=== PATIENT | male | born 1965 | race African-American/Black ===

== ENCOUNTER 2018-09-17 21:28 | Emergency (ER) | payer SELFPAY ==
[2018-09-17] MEDS ORDERED: Sodium Chloride 0.9% 1,000 ML IV ONE (21:46)
[2018-09-17 21:47] VITALS: BP 130/83
[2018-09-17] MEDS ORDERED: Atropine/Diphenoxylate 0.025-2.5 MG Tab PO ONE (21:47)
[2018-09-17] MEDS ORDERED: Ondansetron 4 MG/2 ML SDV IVPUSH ONE (21:47)
--- NOTE | 2018-09-17 22:10 | EDM.PDOC ---
ED HPI GENERAL MEDICAL PROBLEM - General Chief Complaint: Gastrointestinal Problem Stated Complaint: vomiting Time Seen by Provider: 09/17/18 21:46 Source of Information: Reports: Patient History Limitations: Reports: No Limitations - History of Present Illness INITIAL COMMENTS - FREE TEXT/NARRATIVE: 52 y/o male presents to ER with cc diarrhea that started yesterday evening. He reports today he started vomiting x 3. He denies fever, chills or body aches. He states he ate yesterday at a [employer] in town. He has not been around any other sick contact. Onset Date: 09/16/18 Onset Time: 17:00 Duration: Intermittent Location: Reports: Abdomen Quality: Reports: Dull Severity: Mild Improves with: Reports: None Worsens with: Reports: None Associated Symptoms: Reports: Nausea/Vomiting, Other (diarrhea). Denies: Fever/ Chills Upper Abdomen Pain Score (Numeric/FACES): 8 - Related Data Allergies Allergy/AdvReac Type Severity Reaction Status Date / Time No Known Allergies Allergy Verified 05/23/18 23:38 Home Meds: Home Meds Diphenoxylate HCl/Atropine [Lomotil] 1 tab PO Q6H PRN 3 Days #6 tablet 09/17/18 [Rx] Ondansetron [Zofran ODT] 4 mg PO Q6H PRN 4 Days #12 tab.dis 09/17/18 [Rx] Past Medical History - Past Health History Medical/Surgical History: Denies Medical/Surgical History - Past Surgical History GI Surgical History: Reports: Appendectomy Social & Family History - Caffeine Use Caffeine Use: Reports: None ED ROS GENERAL - Review of Systems Review Of Systems: See Below Constitutional: Denies: Fever, Chills HEENT: Reports: Throat Pain Respiratory: Reports: No Symptoms Cardiovascular: Reports: No Symptoms Endocrine: Reports: No Symptoms GI/Abdominal: Reports: Abdominal Pain, Diarrhea, Vomiting (epigastric tenderness ) Musculoskeletal: Reports: No Symptoms Skin: Reports: No Symptoms Neurological: Reports: No Symptoms Psychiatric: Reports: No Symptoms Hematologic/Lymphatic: Reports: No Symptoms Immunologic: Reports: No Symptoms ED EXAM, GI/ABD - Physical Exam Exam: See Below Exam Limited By: No Limitations General Appearance: Alert, WD/WN, No Apparent Distress Ears: Normal External Exam, Normal Canal, Hearing Grossly Normal, Normal TMs Nose: Normal Inspection, Normal Mucosa, No Blood Throat/Mouth: Normal Inspection, Normal Lips, Normal Teeth, Normal Gums, Normal Oropharynx, Normal Voice, No Airway Compromise Head: Atraumatic, Normocephalic Neck: Normal Inspection, Supple, Non-Tender, Full Range of Motion Respiratory/Chest: No Respiratory Distress, Lungs Clear, Normal Breath Sounds, No Accessory Muscle Use, Chest Non-Tender Cardiovascular: Normal Peripheral Pulses, Regular Rate, Rhythm, No Edema, No Gallop, No JVD, No Murmur, No Rub GI/Abdominal Exam: Normal Bowel Sounds, Soft, Non-Tender, No Organomegaly, No Distention, No Abnormal Bruit, No Mass, Pelvis Stable (Male) Exam: No Hernia, Normal Inspection, Normal Prostate Back Exam: Normal Inspection, Full Range of Motion Extremities: Normal Inspection, Normal Range of Motion, Non-Tender, No Pedal Edema, Normal Capillary Refill Neurological: Alert, Oriented, Normal Cognition, Normal Gait, Normal Reflexes, No Motor/Sensory Deficits Psychiatric: Normal Affect, Normal Mood Skin Exam: Warm, Dry, Intact, Normal Color, No Rash Lymphatic: No Adenopathy Course - Vital Signs Last Recorded V/S: Last Vital Signs Temp 98.1 F 09/17/18 21:45 Pulse 72 09/17/18 21:45 Resp 20 09/17/18 21:45 BP 130/83 09/17/18 21:45 Pulse Ox 95 09/17/18 21:45 - Orders/Labs/Meds Labs: Laboratory Tests 09/17/18 09/17/18 Range/Units 22:03 22:03 WBC 5.21 (4.23-9.07) K/mm3 RBC 5.13 (4.63-6.08) M/mm3 Hgb 15.2 (13.7-17.5) gm/L Hct 45.8 (40.1-51.0) % MCV 89.3 (79.0-92.2) fl MCH 29.6 (25.7-32.2) pg MCHC 33.2 (32.2-35.5) g/dl RDW Std Deviation 46.7 H (35.1-43.9) fL Plt Count 158 L (163-337) K/mm3 MPV 10.7 (9.4-12.3) fl Neut % (Auto) 60.7 (34.0-67.9) % Lymph % (Auto) 21.3 L (21.8-53.1) % Crane % (Auto) 10.7 (5.3-12.2) % Eos % (Auto) 7.1 H (0.8-7.0) Baso % (Auto) 0.0 L (0.1-1.2) % Neut # (Auto) 3.16 (1.78-5.38) K/mm3 Lymph # (Auto) 1.11 L (1.32-3.57) K/mm3 Crane # (Auto) 0.56 (0.30-0.82) K/mm3 Eos # (Auto) 0.37 (0.04-0.54) K/mm3 Baso # (Auto) 0.00 L (0.01-0.08) K/mm3 Sodium 142 (136-145) mEq/L Potassium 3.4 L (3.5-5.1) mEq/L Chloride 104 (98-107) mEq/L Carbon Dioxide 27 (21-32) mEq/L Anion Gap 14.4 (5-15) BUN 21 H (7-18) mg/dL Creatinine 1.0 (0.7-1.3) mg/dL Est Cr Clr Drug Dosing 108.50 mL/min Estimated GFR (MDRD) > 60 (>60) mL/min BUN/Creatinine Ratio 21.0 H (14-18) Glucose 99 (74-106) mg/dL Calcium 8.2 L (8.5-10.1) mg/dL Total Bilirubin 1.2 H (0.2-1.0) mg/dL AST 27 (15-37) U/L ALT 37 (16-63) U/L Alkaline Phosphatase 65 (46-116) U/L Total Protein 7.8 (6.4-8.2) g/dl Albumin 3.7 (3.4-5.0) g/dl Globulin 4.1 gm/dL Albumin/Globulin Ratio 0.9 L (1-2) Meds: Medications Discontinued Medications Generic Name Dose Route Start Last Admin Trade Name Freq PRN Reason Stop Dose Admin Diphenoxylate HCl/Atropine 1 tab 09/17/18 21:47 09/17/18 22:03 Lomotil 0.025-2.5 Mg PO 09/17/18 21:48 1 tab ONETIME ONE Administration Sodium Chloride 1,000 mls @ 999 mls/hr 09/17/18 21:46 09/17/18 22:03 Normal Saline IV 09/17/18 22:46 999 mls/hr ONETIME ONE Administration Ondansetron HCl 4 mg 09/17/18 21:47 09/17/18 22:03 Zofran IVPUSH 09/17/18 21:48 4 mg ONETIME ONE Administration - Re-Assessments/Exams Free Text/Narrative Re-Assessment/Exam: 09/17/18 22:58 His WBC 5.21 H & H 15.2/45.8 PLT 158. Na+ 142 K+ 3.4 Chloride 104 Bun 21 Creatine 1.0. I will discharge home with Zofran and Lomotil. I instructed the patient on bland diet and to advance as tolerated. He received IVF, Zofran and Lomotil and his condition improved. Instructed to follow up with his PCP. Instructed him to return to the ER for any new or acute worsening symptoms. Departure - Departure Time of Disposition: 23:01 Disposition: Home, Self-Care 01 Condition: Good Clinical Impression: Gastroenteritis - Discharge Information *PRESCRIPTION DRUG MONITORING PROGRAM REVIEWED*: Not Applicable *COPY OF PRESCRIPTION DRUG MONITORING REPORT IN PATIENT MACKEN[place]IE: Not Applicable Prescriptions: Diphenoxylate HCl/Atropine [Lomotil] 1 tab PO Q6H PRN 3 Days #6 tablet PRN Reason: diarhea Ondansetron [Zofran ODT] 4 mg PO Q6H PRN 4 Days #12 tab.dis PRN Reason: Nausea Instructions: Viral Gastroenteritis, Adult, Food Choices to Help Relieve Diarrhea, Adult, Nausea and Vomiting, Adult, [id number] Referrals: PCP,None [Primary Care Provider] - Forms: ED Department Discharge Additional Instructions: You have been diagnosis with gastroenteritis. I recommend you eat a bland diet and advance as tolerated. You have been given a prescription for Zofran for nausea and Lomotil for diarrhea. Followup with your PCP. If you do not have one , I recommend Dr. Veloz or another provider in the clinic. [phone]. Return to the ER for any new or acute worsening symptoms.
== END 2018-09-17 23:12 | disposition home or self-care (01) ==
LOC: JD.ED 21:28
DX: K52.9 Noninfective gastroenteritis and colitis, unspecified (principal)
CPT/HCPCS: 36415; 80053; 85025; 96361; 96374; 99284; A9270; J2405; J7040